=== PATIENT | female | born 1975 | race Caucasian/White ===

== ENCOUNTER → 2024-04-18 | Outpatient (CLI) | payer OTHER ==
[~2024-04-18] MED LIST: Acetaminophen650 M1 PO; Naltrexone HCl50 MG PO; OXYC5 PO; PROZAC20 M3 PO
[2024-04-18 15:42] LABS: Free Thyroxine 0.85 ng/dL (0.70-1.60); Thyroid Stimulating Hormone 1.16 uIU/mL (0.360-4.800); Triiodothyronine, Free 2.63 pg/mL (2.18-3.98)
== END ==
LOC: LAB 09:30 → LAB SHORT 09:30
PROVIDERS: Internal Medicine
DX: R53.83 Other fatigue (principal)
CPT/HCPCS: 84439; 84443; 84481